=== PATIENT | female | born 1980 | race Caucasian/White ===

== ENCOUNTER 2017-10-10 08:58 | Day surgery (SDC) | payer BC ==
--- NOTE | 2017-10-07 09:42 | HP ---
DATE OF SURGERY: 10/10/2017 ADMISSION DIAGNOSIS: Ventral hernia symptomatic. ANTICIPATED PROCEDURE: Repair. HISTORY OF PRESENT ILLNESS: The patient has ventral abdominal hernia presents for repair. PAST MEDICAL HISTORY: ALLERGIES: CIPRO. MEDICATIONS: Humalog, Biotin. PAST SURGICAL HISTORY: Hysterectomy, section, thyroid removal, thumb surgery. SOCIAL HISTORY: Negative. FAMILY HISTORY: Negative. REVIEW OF SYSTEMS: Diabetes. PHYSICAL EXAMINATION: VITAL SIGNS: Normal. CHEST: Clear. COR: Regular. ABDOMEN: Ventral hernia. IMPRESSION: CT scan showed she had several ventral hernias. I think it was suggested that we repair the symptomatic area in the lower abdomen. She will be remarked the day of surgery.
[~2017-10-10 08:58] MED LIST: KEFZOL 1 GM ONE; Lactated Ringers 1,000 ML IV ONE; Sensorcaine 0.25% 10 ML ONE
[2017-10-10] MEDS ORDERED: BRIDION 200MG/2ML IV ONE (08:59)
[2017-10-10] MEDS ORDERED: Quelicin Fliptop 200 MG/10 ML IV ONE (08:59)
[2017-10-10] MEDS ORDERED: Decadron 4 MG INJ IV ONE (08:59)
[2017-10-10] MEDS ORDERED: DIPRIVAN 200 MG/20 ML IV ONE (08:59)
[2017-10-10] MEDS ORDERED: SUBLIMAZE 250 MCG/5 ML IV ONE (08:59)
[2017-10-10] MEDS ORDERED: Zemuron 100 MG/10 ML IV ONE (08:59)
[2017-10-10] MEDS ORDERED: Zofran 4 MG/2 ML VIAL IV ONE (08:59)
[2017-10-10] MEDS ORDERED: MORPHINE SULFATE 10 MG/ML IV ONE (08:59)
[2017-10-10] MEDS ORDERED: Versed 2 MG/2 ML Injection IV ONE (08:59)
[2017-10-10] MEDS ORDERED: CLINDAMYCIN-D5W 900 MG/50 ML*** 900 MG/50 ML BAG IV SCH (09:00)
[2017-10-10] MEDS ORDERED: Lactated Ringers 1,000 ML IV SCH (09:00)
[2017-10-10] MEDS ORDERED: Zofran 4 MG/2 ML VIAL ONE (16:20)
[2017-10-10] MEDS ORDERED: Phenergan 25 MG INJ ONE (17:06)
[2017-10-10] MEDS ORDERED: Transderm Scop 1.5MG Patch ONE (17:06)
[2017-10-10] MEDS ORDERED: Phenergan 25 MG INJ IV PRN (17:08)
[2017-10-10] MEDS ORDERED: Phenergan 25 MG INJ IV ONE (17:15)
[2017-10-10] MEDS ORDERED: Transderm Scop 1.5MG Patch TOP ONE (17:15)
[2017-10-10 17:23] VITALS: BP 130/84; PULSE 97; O2SAT 93
--- NOTE | 2017-10-11 12:41 | OP ---
SURGERY DATE/TIME: 10/10/2017 1415 PREOPERATIVE DIAGNOSIS: Ventral hernia. POSTOPERATIVE DIAGNOSIS: Ventral hernia. PROCEDURE: Ventral herniorrhaphy with mesh. SURGEON: Derek Esparza M.D. DIRECTOR OF NURSES REGISTRY: Citlalli Butt M.D. ANESTHESIA: General endotracheal tube. COMPLICATIONS: None. CONDITION: Stable. INDICATION: A patient with symptomatic ventral hernia. DESCRIPTION OF PROCEDURE: Taken to surgery. General anesthetic. Routine prep and drape. Lower midline incision was entered. It was marked preoperatively. Time out had been performed. A very defined silver dollar sized defect was present with a 5 x 5 inch hernia spread out over top of this. The hernia sac was totally resected, totally removed. The fascial edges totally defined. The Bicomponent mid-sized mesh was chosen was placed was pulled up and secured with four quadrant sutures and two sets of interquadrant sutures for a total of 12 sutures. Good approximation and hemostasis and repair. Subcutaneous tissue irrigated. Skin closed with 3-0 Vicryl, Steri-Strips, sterile dressing applied. The patient tolerated the procedure satisfactorily.
== END 2017-10-10 17:50 | disposition home or self-care (01) ==
LOC: SDC 08:58
PROVIDERS: ATTEND Surgery
PROC: 0WUF0JZ Supplement Abdominal Wall with Synthetic Substitute, Open Approach (ICD-10-PCS; principal; 2017-10-10)
DX: K43.9 Ventral hernia without obstruction or gangrene (principal); E11.9 Type 2 diabetes mellitus without complications; Z79.899 Other long term (current) drug therapy; Z79.4 Long term (current) use of insulin
CPT/HCPCS: 00832; 64488; 76937; 82962; J0330; J0690; J1100; J2250; J2270; J2405; J2550; J2704; J3010; L0625; A9270-GY

== ENCOUNTER → 2022-05-08 | Emergency (ER) | payer SELFPAY | LOC: ED 19:27 | DX: Z53.21 Procedure and treatment not carried out due to patient leaving prior to being seen by health care provider (principal) ==